=== PATIENT | male | born 1985 | race Caucasian/White ===

== ENCOUNTER 2022-12-31 09:59 | Emergency (ER) | payer OTHER ==
[2022-12-31 10:43] VITALS: RESP 18
--- NOTE | 2022-12-31 10:52 | ERPHSYRPT ---
- History of Present Illness Time Seen by Provider: 12/31/22 10:08 Source: patient Exam Limitations: no limitations Patient Subjective Stated Complaint: Pt was at work and climbing into a machine and slipped and fell. Unsure what he actually fell on, possibly a chainsaw Triage Nursing Assessment: Pt alert & oriented. Able to ambulate to ED room. Left knee wrapped with gauze. Knee unwrapped and cleansed with sterile water and Hibiclens. Pt has a 2 inch open wound with active bleeding. 3 small puncture wounds above the knee Physician History: Patient here with left knee laceration, other lacerations left leg. Patient is up-to-date on his tetanus shot. Patient states that just prior to arrival he was working on a chainsaw machine. States that he slipped. It hit his left knee and left inner thigh. Bleeding well controlled. No other injuries or trauma from the fall. Allergies/Adverse Reactions: No Known Drug Allergies Allergy (Unverified 12/31/22 10:31) Home Medications: Oxycodone HCl/Acetaminophen [Percocet 7.5-325 mg Tablet] 1 each PO [id number] PRN 12/17/16 [History] Albuterol Sulfate [Proair Hfa] 8.5 gm IH UD 08/24/17 [History] Ibuprofen 600 mg PO DAILY PRN PRN 08/24/17 [History] Hx Tetanus, Diphtheria Vaccination/Date Given: Yes (possibly 2 years ago) Travel Risk - International Travel Have you traveled outside of the country in past 3 weeks: No - Coronavirus Screening Are you exhibiting any of the following symptoms?: No - Vaccine Status Have you recieved a Covid-19 vaccination: No - Review of Systems Constitutional: No Fever, No Chills Eyes: No Symptoms Ears, Nose, & Throat: No Symptoms Respiratory: No Cough, No Dyspnea Cardiac: No Chest Pain, No Edema, No Syncope Abdominal/Gastrointestinal: No Abdominal Pain, No Nausea, No Vomiting, No Diarrhea Genitourinary Symptoms: No Dysuria Musculoskeletal: Fall, Other (Left knee laceration), No Back Pain, No Neck Pain Skin: No Rash Neurological: No Dizziness, No Focal Weakness, No Sensory Changes Psychological: No Symptoms Endocrine: No Symptoms All Other Systems: Reviewed and Negative - Past Medical History Pertinent Past Medical History: No Other Medical History: back problems - Past Surgical History Past Surgical History: Yes Gastrointestinal: Appendectomy Other Surgical History: spinal fusion, - Social History Smoking Status: Never smoker Exposure to second hand smoke: No Drug Use: none Patient Lives Alone: Yes - Nursing Vital Signs Nursing Vital Signs: Initial Vital Signs Respiratory Rate 18 12/31/22 10:00 Blood Pressure 149/96 12/31/22 10:00 Pain Scale Pain Intensity 4 - Physical Exam General Appearance: no apparent distress, alert Eye Exam: PERRL/EOMI, eyes nml inspection Ears, Nose, Throat Exam: normal ENT inspection, TMs normal, pharynx normal, moist mucous membranes Neck Exam: normal inspection, non-tender, supple, full range of motion Respiratory Exam: normal breath sounds, lungs clear, No respiratory distress Cardiovascular Exam: regular rate/rhythm, normal heart sounds, normal peripheral pulses Gastrointestinal/Abdomen Exam: soft, normal bowel sounds, No tenderness, No mass Back Exam: normal inspection, normal range of motion, No CVA tenderness, No vertebral tenderness Extremity Exam: normal inspection, normal range of motion, pelvis stable Neurologic Exam: alert, oriented x 3, cooperative, normal mood/affect, nml cerebellar function, nml station & gait, sensation nml, No motor deficits Skin Exam: normal color, warm, dry, No rash Lymphatic Exam: No adenopathy SpO2 Interpretation: normal Comments: 12/31/22 10:51 Left knee laceration. 5 cm. Full range of motion of the knee with bleeding well controlled. Patient has multiple abrasions to the left inner thigh. 1 other 1 cm laceration in the left inner thigh. No obvious deformity, sensation intact, 2+ capillary refill, 2 point tactile discrimination intact. 5 out of 5 strength. Full range of motion without pain. Compartments are soft, nontender. Overlying skin shows no tenting, bruising, ecchymosis. Procedures - Laceration/Wound Repair Left Knee Wound Location: Left Wound Length (cm): 5 Wound's Depth, Shape: linear Wound Explored: clean Irrigated: Yes Hibiclens Prep: Yes Anesthesia: 1% Lidocaine Volume Anesthetic (ccs): 5 Wound Debrided: minimal Wound Repaired With: sutures Suture Size/Type: 3-0, ethilon Number of Sutures: 6 Layer Closure?: No Sterile Dressing Applied?: Yes Splint Applied?: No Sling Applied?: No Left Other Wound Location: Left Wound's Depth, Shape: linear Wound Explored: clean Irrigated: Yes Hibiclens Prep: Yes Anesthesia: local, 1% Lidocaine Wound Debrided: minimal Wound Repaired With: sutures Suture Size/Type: 3-0 Number of Sutures: 1 Sterile Dressing Applied?: Yes Progress: 12/31/22 11:13 Left inner thigh laceration associated with chainsaw injury. - Progress Progress: improved Progress Note: 12/31/22 11:13 Laceration was repaired as above. Plan for suture removal in 10 to 14 days. Keflex going home. Patient may return here sooner for any new or changing symptoms. - Departure Departure Disposition: Home Clinical Impression: Laceration of left knee Condition: Stable Critical Care Time: No Referrals: VIRGINIA OATES NP [Primary Care Provider] - Follow up/PCP as directed Instructions: Laceration Repair Additional Instructions: Return here in 10 to 14 days for suture removal. Take antibiotics above as prescribed. Should anything change between now and then come back for a wound reexam.
[2022-12-31 11:51] VITALS: BP 135/99; PULSE 80; O2SAT 98
== END 2022-12-31 11:23 | disposition home or self-care (01) ==
LOC: ED 09:59
DX: S81.012A Laceration without foreign body, left knee, initial encounter (principal); S71.112A Laceration without foreign body, left thigh, initial encounter; W29.3XXA Contact with powered garden and outdoor hand tools and machinery, initial encounter; Y99.0 Civilian activity done for income or pay; Z79.899 Other long term (current) drug therapy; Z28.310 Unvaccinated for COVID-19
CPT/HCPCS: 12002; 99283